=== PATIENT | female | born 1930 | race Caucasian/White ===

== ENCOUNTER → 2016-11-04 | Outpatient (CLI) | payer OTHER ==
[2015-09-04 14:41] VITALS: BP 102/64
[~2016-11-04] MED LIST: ASPI-630 PO; CLOP75TA PO; GABA-586 PO; LEVO75TA5 PO; MULTIVITAMIN; SIMV10TA3 PO; VALS80TA3 PO; [UNRECOGNIZED DRUG - OTHER]
--- NOTE | 2016-11-04 15:09 | CARD ---
APPROVED REPORT EXAM: Two-dimensional and M-mode echocardiogram with Doppler and color Doppler. Other Information Quality : Good INDICATION CVA/TIA 2D DIMENSIONS RVDd2.9 (2.9-3.5cm)Left Atrium(2D)2.7 (1.6-4.0cm) IVSd1.1 (0.7-1.1cm)Aortic Root(2D)3.0 (2.0-3.7cm) LVDd3.9 (3.9-5.9cm)LVOT Diameter1.9 (1.8-2.4cm) PWd1.2 (0.7-1.1cm)LVDs2.2 (2.5-4.0cm) FS (%) 30.0 %SV50.9 ml LVEF(%)60.0 (>50%) Aortic Valve AoV Peak Tanner.168.1cm/sAoV VTI33.5cm AO Peak GR.11.3mmHgLVOT Peak Tanner.95.4cm/s AO Mean GR.6mmHgAVA (VMAX)1.59cm2 RAJENDRA (VTI)1.90cm2 Mitral Valve MV E Ngpguxbd23.4cm/sMV DECEL PUIL408fg MV A Yzdpbyda75.5cm/sE/A Ratio0.8 Tricuspid Valve TR P. Vmonpczc788ga/sRAP FTPRFRPB4ymTz TR Peak Gr.52uuDmLSSA36woJg LEFT VENTRICLE The left ventricle is normal size. There is mild concentric left ventricular hypertrophy. The left ve ntricular systolic function is normal and the ejection fraction is within normal range. The Ejection Fraction is 55-60%. There is normal LV segmental wall motion. Transmitral Doppler flow pattern is Gra de I-abnormal relaxation pattern. RIGHT VENTRICLE The right ventricle is normal size. The right ventricular systolic function is normal. ATRIA The left atrium size is normal. The right atrium size is normal. The interatrial septum is intact wit h no evidence for an atrial septal defect or patent foramen ovale as noted on 2-D or Doppler imaging. 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 Doppler and Color Flow revealed no significant aortic regurgitation. There is no significant aort ic valvular stenosis. MITRAL VALVE The mitral valve is calcified but opens well. There is no evidence of mitral valve prolapse. There is no mitral valve stenosis. Doppler and Color-flow revealed trace to mild mitral regurgitation. TRICUSPID VALVE The tricuspid valve is normal in structure and function. Doppler and Color Flow revealed trace to mil d tricuspid regurgitation. The PA pressure was estimated at 26 mmHg. There is no tricuspid valve sten osis. PULMONIC VALVE Doppler and Color Flow revealed no pulmonic valvular regurgitation. There is no pulmonic valvular carolina nosis. GREAT VESSELS The aortic root is normal in size. The ascending aorta is normal in size. The IVC is normal in size a nd collapses >50% with inspiration. PERICARDIAL EFFUSION There is no evidence of significant pericardial effusion. Critical Notification Critical Value: No <Conclusion> The left ventricular systolic function is normal and the ejection fraction is within normal range. Th e Ejection Fraction is 55-60%. There is normal LV segmental wall motion.
--- NOTE | 2016-11-04 16:38 | RAD ---
APPROVED REPORT Patient Location: OUT-PATIENT Laterality:Bilateral Indications CVA/TIA: Doppler Spectral Velocity Analysis Right Left pCCA 123/14 cm/spCCA 111/18 cm/s mCCA 130/18 cm/smCCA 126/15 cm/s dCCA 98/16 cm/sdCCA 111/19 cm/s Bulb 70/18 cm/sBulb 83/09 cm/s ECA 82/ cm/sECA 106/ cm/s pICA 75/17 cm/spICA 137/29 cm/s Juno 57/11 cm/smICA 102/20 cm/s dICA 46/09 cm/sdICA 73/23 cm/s Vert. 47/ cm/sVert. 32/ cm/s Subcl. 194/ cm/sSubcl. 154/ cm/s ICA/CCA 0.58ICA/CCA 1.23 Findings Rooney scale images of the right common carotid arterial system reveal minimal plaque. The color Doppl er and spectral waveforms reveal 0-50% stenosis. No significant obstructive pathology is noted. The v ertebral velocities antegrade. There is mildly elevated velocities in the subclavian system on the ri ght side suggestive approximately 50% stenosis. Grayscale images of the left common carotid arterial system revealed minimal atherosclerotic plaque. Color Doppler and spectral waveforms in the common carotid and actual carotid vessels do not reveal a ny significant pathology with less than 50% stenosis. The mid internal artery artery has approximatel y 50-69% stenosis based on velocity criteria. The left subclavian system has mild anthracotic plaque with mildly increased velocities suggestive of again approximately 0-50% stenosis. The vertebral velo city is antegrade. Critical Notification Critical Value: No <Conclusion> 1. Mild right internal carotid and moderate 50-69% stenosis on the left side. 2. Minimally increased left-sided disease compared to last year.
== END | disposition home or self-care (01) ==
LOC: US 08:15
PROVIDERS: ATTEND Internal Medicine Cardiovascular Disease
DX: I63.9 Cerebral infarction, unspecified (principal); G45.9 Transient cerebral ischemic attack, unspecified; I51.7 Cardiomegaly
CPT/HCPCS: 93306; 93880

== ENCOUNTER 2016-12-05 15:36 | Emergency (ER) | payer OTHER ==
[~2016-12-05] VITALS: Ht 160 cm; Wt 79.8 kg
--- NOTE | 2016-12-05 16:45 | EKG ---
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
--- NOTE | 2016-12-05 17:01 | RAD ---
CT head without contrast 12/05/2016 at 1647 hours Indication: Weakness Comparison: CT head 09/02/2015 Technique: Multiple axial CT images of the head from skull base to the vertex were obtained without intravenous contrast. Findings: Ventricles, sulci and basal cisterns are mildly prominent compatible with mild generalized triple volume loss. Rooney-white matter differentiation is preserved. There is no mass, mass effect or midline shift. No acute intracranial hemorrhage. Bilateral lens replacements noted. Otherwise, the orbits are within normal limits. Mastoid air cells are well aerated. There is mucosal thickening involving the left sphenoid sinus and posterior ethmoid air cells on the right. Scalp and calvaria are normal in appearance. Impression: 1. No acute intracranial hemorrhage. 2. Moderate mucosal thickening involving the sphenoid sinus and right ethmoid air cells. PQRS Compliance Statement: One or more of the following individualized dose reduction techniques were utilized for this examination: 1. Automated exposure control 2. Adjustment of the mA and/or kV according to patient size 3. Use of iterative reconstruction technique
[2016-12-05 17:46] LABS: BASO # 0.1 x10^3/uL (0.0-0.2); BASO % 1 % (0-3); EOS % 2 % (0-3); HEMATOCRIT 36.7 % (36.0-47.0); HEMOGLOBIN 12.5 g/dL (12.0-15.5); LYMPH # 1.8 x10^3/uL (1.0-4.8); LYMPH % 15 % (24-48); MEAN CORPUSCULAR HEMOGLOBIN 32 pg (25-35); MEAN CORPUSCULAR HGB CONC 34 g/dL (31-37); MEAN CORPUSCULAR VOLUME 94 fL (79-100); MONO % 8 % (0-9); NEUT % 74 % (31-73); PLATELET COUNT 251 x10^3/uL (140-400); RED BLOOD COUNT 3.91 x10^6/uL (3.50-5.40); RED CELL DISTRIBUTION WIDTH 13.4 % (11.5-14.5); WHITE BLOOD COUNT 11.5 x10^3/uL (4.0-11.0)
[2016-12-05 17:57] LABS: INR 1.2 (0.8-1.1); PROTHROMBIN TIME PATIENT 14.7 SEC (11.7-14.0)
[2016-12-05 17:58] LABS: CALCIUM 9.2 mg/dL (8.5-10.1); CREATININE 1.4 mg/dL (0.6-1.0); GFR 35.6; POTASSIUM 4.5 mmol/L (3.5-5.1)
[2016-12-05 18:04] LABS: BILIRUBIN,URINE NEGATIVE (NEG); GLUCOSE,URINE NEGATIVE (NEG); NITRITE,URINE POSITIVE (NEG); PH,URINE 6.5; PROTEIN,URINE NEGATIVE (NEG-TRACE); UROBILINOGEN,URINE 0.2 mg/dL (0.2 mg/dL)
[2016-12-05 18:04] LABS: ALBUMIN 3.3 g/dL (3.4-5.0); ALBUMIN/GLOBULIN RATIO 0.9 (1.0-1.7); MAGNESIUM 2.3 mg/dL (1.8-2.4); TOTAL BILIRUBIN 0.7 mg/dL (0.2-1.0); TOTAL PROTEIN 6.9 g/dL (6.4-8.2)
[2016-12-05 18:15] LABS: BACTERIA,URINE MANY /HPF (0-FEW); SQUAMOUS EPITHELIAL CELL,UR MOD /LPF; WBC,URINE >40 /HPF (0-4)
[2016-12-05] MEDS ORDERED: NITR100C62 PO (18:56)
--- NOTE | 2016-12-05 18:56 | PHYS DOC ---
Past Medical History Past Medical History: High Cholesterol, Hypertension, Hypothyroid, Other Additional Past Medical Histor: neuropathy - lower extremities, encephalitis, Past Surgical History: Cholecystectomy, Hip Replacement, Hysterectomy, Other Additional Past Surgical Histo: back sx Additional Information: Quit years ago. Alcohol Use: None Drug Use: None Adult General Chief Complaint Chief Complaint: FATIGUE HPI HPI Patient is a 86 year old female who presents with generalized weakness and fatigue. Patient reports 3 days ago she cleaned her entire house which is more cleaning than she usually doesn't one day. The following day she felt weak all over and slept more than usual. She went to see Dr. Cises in the urgent care clinic today and was referred here for further evaluation. She denies fevers or chills, headache, vision changes, chest pain, palpitations, shortness of breath , abdominal pain, nausea, vomiting, diarrhea, dysuria or hematuria, extremity numbness or weakness. She has history of hypertension. Review of Systems Review of Systems Constitutional: Denies fever or chills, reports generalized weakness Eyes: Denies change in visual acuity HENT: Denies nasal congestion or sore throat Respiratory: Denies cough or shortness of breath Cardiovascular: Denies chest pain or edema GI: Denies abdominal pain, nausea, vomiting, bloody stools or diarrhea : Denies dysuria or hematuria Musculoskeletal: Denies back pain or joint pain Integument: Denies rash or skin lesions Neurologic: Denies headache, focal weakness or sensory changes Allergies Allergies Allergies Uncoded Allergies Type Severity Reaction Last Updated Verified pain medications Adverse Reaction Intermediate Nausea and Vomiting 09/02/15 Physical Exam Physical Exam Constitutional: Well developed, well nourished, no acute distress, non-toxic appearance. HENT: Normocephalic, atraumatic, bilateral external ears normal, oropharynx moist, nose normal. Eyes: PERRLA, EOMI, conjunctiva normal, no discharge. Neck: supple, no stridor. Cardiovascular: RRR, no murmurs, no edema. Lungs & Thorax: LCTAB, no wheezing, no respiratory distress. Abdomen: soft, nontender, nondistended. Skin: Warm, dry, no erythema, no rash. Back: No tenderness. Extremities: No tenderness, no edema. No calf tenderness or swelling Neurologic: Alert and oriented X 3, cranial nerves II through XII grossly intact , symmetric strength and sensation to upper and lower extremities, no focal deficits noted. Psychologic: Affect normal, judgement normal, mood normal. Current Patient Data Vital Signs Vital Signs Date Time Temp Pulse Resp B/P (MAP) Pulse Ox O2 Delivery O2 Flow Rate FiO2 12/05/16 19:12 70 20 149/65 (93) 95 Room Air 12/05/16 16:08 98.5 98.5 Lab Values Laboratory Tests Test 12/05/16 17:25 12/05/16 17:45 White Blood Count 11.5 x10^3/uL (4.0-11.0) H Red Blood Count 3.91 x10^6/uL (3.50-5.40) Hemoglobin 12.5 g/dL (12.0-15.5) Hematocrit 36.7 % (36.0-47.0) Mean Corpuscular Volume 94 fL (79-100) Mean Corpuscular Hemoglobin 32 pg (25-35) Mean Corpuscular Hemoglobin Concent 34 g/dL (31-37) Red Cell Distribution Width 13.4 % (11.5-14.5) Platelet Count 251 x10^3/uL (140-400) Neutrophils (%) (Auto) 74 % (31-73) H Lymphocytes (%) (Auto) 15 % (24-48) L Monocytes (%) (Auto) 8 % (0-9) Eosinophils (%) (Auto) 2 % (0-3) Basophils (%) (Auto) 1 % (0-3) Neutrophils # (Auto) 8.6 x10^3uL (1.8-7.7) H Lymphocytes # (Auto) 1.8 x10^3/uL (1.0-4.8) Monocytes # (Auto) 0.9 x10^3/uL (0.0-1.1) Eosinophils # (Auto) 0.2 x10^3/uL (0.0-0.7) Basophils # (Auto) 0.1 x10^3/uL (0.0-0.2) Prothrombin Time 14.7 SEC (11.7-14.0) H Prothrombin Time INR 1.2 (0.8-1.1) H PTT 41 SEC (24-38) H Sodium Level 134 mmol/L (136-145) L Potassium Level 4.5 mmol/L (3.5-5.1) Chloride Level 96 mmol/L (98-107) L Carbon Dioxide Level 29 mmol/L (21-32) Anion Gap 9 (6-14) Blood Urea Nitrogen 20 mg/dL (7-20) Creatinine 1.4 mg/dL (0.6-1.0) H Estimated GFR (Cockcroft-Gault) 35.6 BUN/Creatinine Ratio 14 (6-20) Glucose Level 107 mg/dL (70-99) H Calcium Level 9.2 mg/dL (8.5-10.1) Magnesium Level 2.3 mg/dL (1.8-2.4) Total Bilirubin 0.7 mg/dL (0.2-1.0) Aspartate Amino Transferase (AST) 19 U/L (15-37) Alanine Aminotransferase (ALT) 21 U/L (14-59) Alkaline Phosphatase 81 U/L (46-116) Troponin I Quantitative < 0.017 ng/mL (0.000-0.055) NU-Jmz-F-Type Natriuretic Peptide 302 pg/mL (0-449) Total Protein 6.9 g/dL (6.4-8.2) Albumin 3.3 g/dL (3.4-5.0) L Albumin/Globulin Ratio 0.9 (1.0-1.7) L Thyroid Stimulating Hormone (TSH) 0.594 uIU/mL (0.358-3.74) Urine Collection Type Unknown Urine Color Yellow Urine Clarity Cloudy Urine pH 6.5 Urine Specific Newborn 1.010 Urine Protein Negative mg/dL (NEG-TRACE) Urine Glucose (UA) Negative mg/dL (NEG) Urine Ketones (Stick) Negative mg/dL (NEG) Urine Blood Trace (NEG) Urine Nitrite Positive (NEG) Urine Bilirubin Negative (NEG) Urine Urobilinogen Dipstick 0.2 mg/dL (0.2 mg/dL) Urine Leukocyte Esterase Large (NEG) Urine RBC 1-2 /HPF (0-2) Urine WBC >40 /HPF (0-4) Urine Squamous Epithelial Cells Mod /LPF Urine Bacteria Many /HPF (0-FEW) Urine Mucus Mod /LPF Laboratory Tests 12/05/16 17:25 Laboratory Tests 12/05/16 17:25 EKG EKG Interpreted by me: Normal sinus rhythm rate 68, no acute ST or T wave changes, MD interval prolonged 240 ms otherwise normal intervals, no ectopy.[] Radiology/Procedures Radiology/Procedures PROCEDURE: CT HEAD WO CONTRAST CT head without contrast 12/05/2016 at 1647 hours Indication: Weakness Comparison: CT head 09/02/2015 Technique: Multiple axial CT images of the head from skull base to the vertex were obtained without intravenous contrast. Findings: Ventricles, sulci and basal cisterns are mildly prominent compatible with mild generalized triple volume loss. Rooney-white matter differentiation is preserved. There is no mass, mass effect or midline shift. No acute intracranial hemorrhage. Bilateral lens replacements noted. Otherwise, the orbits are within normal limits. Mastoid air cells are well aerated. There is mucosal thickening involving the left sphenoid sinus and posterior ethmoid air cells on the right. Scalp and calvaria are normal in appearance. Impression: 1. No acute intracranial hemorrhage. 2. Moderate mucosal thickening involving the sphenoid sinus and right ethmoid air cells. PQRS Compliance Statement: One or more of the following individualized dose reduction techniques were utilized for this examination: 1. Automated exposure control 2. Adjustment of the mA and/or kV according to patient size 3. Use of iterative reconstruction technique DICTATED and SIGNED BY: FELICIANO COOK MD DATE: 12/05/161655 [] Course & Med Decision Making Course & Med Decision Making Pertinent Labs and Imaging studies reviewed. (See chart for details) The patient visits with generalized weakness. No significant abnormalities but she has a urinary tract infection. Discussed results with the patient and her daughters. She states she feels well and feels safe being at home. I did offer hospital admission but she much prefers to be at home and be able to sleep in her own bed. Her daughters are able to assist her if needed. Recommend rest, by mouth hydration, gave prescription for Macrobid. Recommend follow-up with primary care physician in 2-3 days. Return to the emergency department for high fever, severe pain, uncontrolled vomiting, any otherwise worsening condition. Discharged home in stable condition. [] Dragon Disclaimer Dragon Disclaimer This electronic medical record was generated, in whole or in part, using a voice recognition dictation system. Departure Departure Impression: Primary Impression: Urinary tract infection Additional Impressions: Generalized weakness Essential hypertension Disposition: 01 HOME, SELF-CARE Condition: STABLE Referrals: CAITY SAWANT Jr, MD (PCP) Patient Instructions: Urinary Tract Infection, [id number] Additional Instructions: You were seen in the emergency department today for urinary tract infection. Please rest, drink fluids, take prescribed antibiotic. Stand slowly from sitting if he felt lightheaded. Follow-up with primary care physician on Thursday. Return to the emergency department for fainting, risk of falling, high fever, severe abdominal pain, uncontrolled vomiting, any otherwise worsening condition. Scripts Nitrofurantoin Monohyd/M-Cryst (MACROBID 100 MG CAPSULE) 100 Mg Capsule 1 CAP PO BID, #14 CAP Prov: RUT VELASQUEZ MD 12/05/16 Problem Qualifiers RUT VELASQUEZ MD Dec 05, 2016 18:56
[2016-12-05 19:12] VITALS: BP 149/65
== END 2016-12-05 19:11 | disposition home or self-care (01) ==
LOC: ER 15:36
DX: R53.1 Weakness (principal); N39.0 Urinary tract infection, site not specified; I10 Essential (primary) hypertension; E03.9 Hypothyroidism, unspecified; E78.00 Pure hypercholesterolemia, unspecified; Z90.710 Acquired absence of both cervix and uterus; Z90.49 Acquired absence of other specified parts of digestive tract; Z96.649 Presence of unspecified artificial hip joint; Z87.891 Personal history of nicotine dependence
CPT/HCPCS: 36415; 70450; 80053; 81001; 83735; 83880; 84443; 84484; 85025; 85610; 85730; 87086; 93005; 99285-25

== ENCOUNTER → 2017-02-18 | Outpatient (CLI) | payer OTHER ==
[~2017-02-18] MED LIST changes: +NITR100C62 PO
--- NOTE | 2017-02-18 12:23 | KCIC ---
LUMBAR SPINE 5 VIEWS Clinical Indication: Sharp lower back pain radiating down left leg x3 weeks. Comparison: CT lumbar spine without contrast, CT myelogram December 11, 2005. Findings: AP, bilateral oblique, lateral, and coned lumbosacral lateral views. There are bilateral hip arthroplasties, incompletely imaged. DJD of the symphysis pubis. Sacroiliac joints are symmetric. Visualized pelvic bones appear intact. Cholecystectomy clips. Atherosclerotic abdominal aorta and branches. There is no evidence of acute compression fracture or acute malalignment. There is mild to moderate right convexity lumbar rotoscoliosis. No obvious pars defect is seen on the oblique views. There is unchanged grade 1 anterolisthesis of L4 and L5. Alignment is otherwise maintained. There is degenerative endplate spurring in the lumbar spine. There may be disc space narrowing of L1/L2. IMPRESSION: 1. No acute compression fracture or malalignment. 2. Mild to moderate right convexity lumbar rotoscoliosis. Electronically signed by: Pavan Rosenbaum MD (02/18/2017 12:20 PM) [id number]
== END | disposition home or self-care (01) ==
LOC: KCIC 11:43
PROVIDERS: ATTEND Family Medicine
DX: M41.86 Other forms of scoliosis, lumbar region (principal)
CPT/HCPCS: 72110

== ENCOUNTER → 2017-04-30 | Outpatient (CLI) | payer OTHER | END | disposition home or self-care (01) | LOC: KCIC CT 12:08 | DX: M47.895 Other spondylosis, thoracolumbar region (principal); M48.05 Spinal stenosis, thoracolumbar region; M51.46 Schmorl's nodes, lumbar region; M25.78 Osteophyte, vertebrae; M41.87 Other forms of scoliosis, lumbosacral region | CPT/HCPCS: 72131 ==

== ENCOUNTER → 2018-11-23 | Outpatient (CLI) | payer OTHER ==
[~2018-11-23] MED LIST changes: -GABA-586 PO; +GABA300C18 PO
--- NOTE | 2018-11-23 18:40 | RAD ---
MR#: [id number] Date of Study: 11/23/2018 Ordering Physician: KYLER FERNANDEZ, Referring Physician: KYLER FERNANDEZ, Tech: Mauri Woody MBA, RDMS, RVT, RDCS, RTR APPROVED REPORT Patient Location: OUT-PATIENT Laterality:Bilateral Indications CVA/TIA: Doppler Spectral Velocity Analysis Right Left pCCA 87/13 cm/spCCA 97/12 cm/s mCCA 96/13 cm/smCCA 89/12 cm/s dCCA 79/14 cm/sdCCA 80/11 cm/s Bulb 64/15 cm/sBulb 91/28 cm/s ECA 94/ cm/sECA 70/ cm/s pICA 69/15 cm/spICA 221/67 cm/s Juno 78/17 cm/smICA 209/25 cm/s dICA 83/19 cm/sdICA 82/14 cm/s Vert. 34/ cm/sVert. 45/ cm/s Subcl. 121/ cm/sSubcl. 160/ cm/s ICA/CCA 0.86ICA/CCA 2.28 Findings Grayscale images of the bilateral chronic vessels demonstrates mild diffuse plaque. On the left there is a moderate 50-69% stenosis based on velocity criteria. ICA to CCA ratios are mil dly elevated at 2.5. No significant obstructive disease is noted on the left with overall grossly nor mal velocities and less than 0-50% stenosis. Vertebral velocities are within normal limits and antegrade. Critical Notification Critical Value: No <Conclusion> 1. Moderate left-sided carotid vascular disease. Signed by : Kyler Fernandez, Electronically Approved : 11/23/2018 18:39:25
== END | disposition home or self-care (01) ==
LOC: US 10:30
PROVIDERS: ATTEND Internal Medicine Cardiovascular Disease
DX: I65.23 Occlusion and stenosis of bilateral carotid arteries (principal); I63.9 Cerebral infarction, unspecified
CPT/HCPCS: 93880